=== PATIENT | male | born 1975 | race Caucasian/White ===

== ENCOUNTER 2017-09-24 11:55 | Emergency (ER) | payer SELFPAY ==
[2017-09-24 12:41] LABS: Hematocrit 38.9 % (42.0-52.0); Hemoglobin 13.2 gm/dL (13.5-18.0); Mean Cell Volume 82.8 fl (78-100); Mean Corpuscular Hemoglobin 28.1 pg (27-31); Mean Corpuscular Hgb Conc 33.9 g/dl (32-36); Mean Platelet Volume 8.6 fl (6.0-9.5); Neutrophil # 3.1 K/mm3 (1.3-6.0); Neutrophil % 47.3 % (42-75.0); Platelet Count 207 K/mm3 (150-450); Red Cell Distribution Width 12.9 % (11.5-14.0); White Blood Count 6.5 K/mm3 (4.0-10.5)
[2017-09-24 12:53] LABS: Albumin * 3.8 gm/dl (3.4-5.0); Anion Gap 9.6 mmol/L (6.8-13.8); BUN/Creatinine Ratio 14.4 (9.0-21.6); Bilirubin, Total 0.4 mg/dL (0.0-1.1); Ca. Corrected For Albumin 8.8 mg/dL (8.4-10.2); Carbon Dioxide 31.7 mmol/L (24-32.6); Partial Thrombolplastin Time 39.8 Seconds (24-32); Potassium 3.3 mmol/L (3.4-4.6)
--- NOTE | 2017-09-24 13:01 | ERNOTE ---
Date of Service: 09/24/17 Time Seen by Provider: 09/24/17 12:18 Stated Complaint: COUGH UP BLOOD Presenting Symptoms:: cough, other - Hemoptysis Source: patient, RN notes reviewed Exam Limitations: no limitations Immunizations: IMMUNIZATION HX Immunizations Up to Date Yes History of Influenza Vaccine No Hx Pneumococcal Vaccination No Allergies/Adverse Reactions: Allergies No Known Allergies Allergy (Verified 09/24/17 12:05) Home Medications: HOME MEDICATIONS NK [No Home Medication] 09/24/17 [Last Taken Unknown] - History of Present Ilness Narrative: 42 year old male presents to the ED from home for coughing up blood. He reports having a cough for about 3 weeks, but this morning he had 2 episodes of hemoptysis. He is a nonsmoker. He has not experienced anything like this in the past. He denies any chest pain or shortness of breath. Review of Systems - Review of Systems Constitutional: Present: recent illness. Absent: fever, fatigue, malaise, weight loss EYE: Absent: eye pain, eye discharge, vision changes ENT: Absent: ear pain, nose congestion, nasal drainage, sore throat Respiratory: Present: cough. Absent: shortness of breath, orthopnea, wheezing, stridor Cardiology: Absent: chest pain, palpitations, syncope Gastrointestinal/Abdominal: Absent: nausea, abdominal pain Genitourinary: Present: no symptoms reported Musculoskeletal: Absent: muscle pain, joint pain Skin: Present: no symptoms reported Neurological: Absent: headache, dizziness/light-headedness Endocrine: Present: no symptoms reported Hematologic/Lymphatic: Absent: easy bruising, easy bleeding Psych: Present: no symptoms reported - Patient's Past Medical History Patient History - Medical: No pertinent hx Patient History - Cardiac/Respiratory: No pertinent hx Patient History - Cancer: No Hx of Cancer Patient History - Surgical Procedures: Other Patient History - Other: None - Social History Living Situations: home Abuse History: No History of abuse Psych History: No pertinent hx Smoking Status: Never smoker Alcohol Use: none Drug Use: none - Immunizations Immunizations Up to Date: Yes Hx Pneumococcal Vaccination: No History of Influenza Vaccine: No Physical Exam - Physical Exam General Appearance: Present: wd/wn, alert, no apparent distress Head Exam: Present: normal inspection Eye Exam: Normal inspection: bilateral Ears, Nose, Throat: Present: normal ENT inspection, normal pharynx Neck: Present: normal inspection, nontender, supple Respiratory: Present: no respiratory distress, normal breath sounds, no accessory muscle use, lungs clear Cardiovascular/Chest: Present: regular rate, rhythm, no murmur Extremity Exam: Present: normal inspection, normal range of motion Neurological Exam: Present: alert, oriented, normal mood/affect Skin Exam: Present: normal color, warm/dry ED Progress - Results and Orders Patient's Lab Results:: I have reviewed the patient's lab results. - Vital Signs Patient's Vital Signs:: I have reviewed the patient's vital signs. Vital Signs: Vital Signs 09/24/17 12:01 Temperature 36.0 C L Pulse Rate 80 Respiratory 12 Rate Blood Pressure 151/92 O2 Sat by Pulse 97 Oximetry - X-Ray X-Ray #1 X-Ray: chest Interpretation: Interp. by me X-ray Comments: No acute cardiopulmonary process noted - Progress/Reassessment Chief Complaint: Cough Progress:: Unchanged Departure Clinical Impression: Cough with hemoptysis - Departure Disposition: Home self-care Condition: Good Instructions: Hemoptysis, [id number], Form - Excuse from Work, School, or Physical Activity Additional Instructions: Running a humidifier may be helpful Follow up for new/worsening symptoms
[2017-09-24 13:20] VITALS: BP 155/88
== END 2017-09-24 13:30 | disposition home or self-care (01) ==
LOC: ER 11:55
DX: R04.2 Hemoptysis (principal)

== ENCOUNTER 2017-11-11 18:13 | Emergency (ER) | payer SELFPAY ==
--- NOTE | 2017-11-11 18:30 | ERNOTE ---
Date of Service: 11/11/17 Time Seen by Provider: 11/11/17 18:29 Stated Complaint: FEVER, VOMITING, COUGH Presenting Symptoms:: cough Source: patient, RN notes reviewed Exam Limitations: no limitations Immunizations: IMMUNIZATION HX Immunizations Up to Date Yes History of Influenza Vaccine No Hx Pneumococcal Vaccination No Allergies/Adverse Reactions: Allergies No Known Allergies Allergy (Verified 09/24/17 12:05) Home Medications: HOME MEDICATIONS Oseltamivir Phosphate [Tamiflu] 75 mg PO BID #10 cap 11/11/17 [Last Taken Unknown] Promethazine HCl/Codeine [Prometh-Codein 6.25-10 mg/5 ml] 5 ml PO Q4H PRN #120 ml 11/11/17 [Last Taken Unknown] - History of Present Ilness Narrative: Ronn is a 42 year old male who presents to the ED by private vehicle for a cough that began last evening. He began having body aches, headache and fever today. He has been around someone with influenza A. He has not taken anything for his symptoms. Date (Duration): 11/10/17 Timing: getting worse Frequency/Possible Cause: Reports: illness exposure Prior Treatment: Denies: recently seen Review of Systems - Review of Systems Constitutional: Present: fever, chills, fatigue, malaise EYE: Absent: eye pain, eye discharge ENT: Present: nasal drainage, sore throat. Absent: ear pain, nose congestion Respiratory: Present: cough. Absent: shortness of breath, wheezing Cardiology: Absent: chest pain, syncope Gastrointestinal/Abdominal: Present: vomiting. Absent: nausea, diarrhea, abdominal pain Genitourinary: Present: no symptoms reported Musculoskeletal: Present: muscle pain, joint pain Skin: Absent: rash, lesions Neurological: Present: headache, dizziness/light-headedness Endocrine: Present: no symptoms reported Hematologic/Lymphatic: Present: no symptoms reported Psych: Present: no symptoms reported - Patient's Past Medical History Patient History - Medical: No pertinent hx Patient History - Cardiac/Respiratory: No pertinent hx Patient History - Cancer: No Hx of Cancer Patient History - Surgical Procedures: Other Patient History - Other: None - Social History Living Situations: home Abuse History: No History of abuse Psych History: No pertinent hx Smoking Status: Never smoker Alcohol Use: none Drug Use: none - Immunizations Immunizations Up to Date: Yes Hx Pneumococcal Vaccination: No History of Influenza Vaccine: No Physical Exam - Physical Exam General Appearance: Present: wd/wn, alert, no apparent distress Head Exam: Present: normal inspection Eye Exam: Normal inspection: bilateral Ears, Nose, Throat: Present: normal ENT inspection, cerumen impaction Neck: Present: nontender, supple, full range of motion, lymphadenopathy (L) - left lower lateral. Absent: lymphadenopathy (R) Respiratory: Present: no respiratory distress, normal breath sounds, no accessory muscle use, lungs clear, other - Frequent cough Cardiovascular/Chest: Present: no murmur, normal peripheral pulses, tachycardia Extremity Exam: Present: normal inspection, normal range of motion Neurological Exam: Present: alert, oriented, normal mood/affect, no motor/ sensory deficits Skin Exam: Present: warm/dry, pallor ED Progress - Results and Orders Patient's Lab Results:: I have reviewed the patient's lab results. - Vital Signs Patient's Vital Signs:: I have reviewed the patient's vital signs. Vital Signs: Vital Signs 11/11/17 18:20 Temperature 38.1 C H Pulse Rate 119 H Respiratory 18 Rate Blood Pressure 136/87 O2 Sat by Pulse 96 Oximetry - Progress/Reassessment Chief Complaint: Cough Progress:: Unchanged Plan - Plan Plan: patient is negative for influenza, but given his symptoms, exposure to his nephew with influenza, and his brother in law, who he lives with and is here with a positive influenza A, will treat as influenza. Departure Clinical Impression: Influenza - Departure Disposition: Home self-care Condition: Stable Instructions: Influenza, Adult, [id number], Form - Excuse from Work, School, or Physical Activity Additional Instructions: Rest Push fluids Tylenol and/or ibuprofen for pain/fever Prescriptions: Oseltamivir Phosphate [Tamiflu] 75 mg PO BID #10 cap Promethazine HCl/Codeine [Prometh-Codein 6.25-10 mg/5 ml] 5 ml PO Q4H PRN #120 ml PRN Reason: Cough
[2017-11-11] MEDS ORDERED: ACETAMINOPHEN 325 MG TABLET ONE (18:42)
[2017-11-11] MEDS: ACETAMINOPHEN 325 MG TABLET PO ONE (18:43)
[2017-11-11 19:32] VITALS: BP 131/85
== END 2017-11-11 19:32 | disposition home or self-care (01) ==
LOC: ER 18:13
DX: J11.1 Influenza due to unidentified influenza virus with other respiratory manifestations (principal)